=== PATIENT | male | born 1950 | race Caucasian/White ===

== ENCOUNTER 2024-05-29 11:33 | Inpatient (IN) | payer MEDICARE ==
[~2024-05-29] VITALS: Ht 172.7 cm; Wt 86.6 kg
[~2024-05-29 11:33] MED LIST: ATORVASTATIN CA20 MG PO; CALCIUM600 MG PO; FEROSUL325 MG PO; LEVOTHYROXINE75 MCG PO; LISINOPRIL10 MG PO; MULTI-VITAMIN1 EACH PO; SYNJARDY XR 121 EACH PO; VITAMIN D3 COM1 EACH PO
[2024-05-29 11:51] VITALS: TEMP 98
[2024-05-29 12:34] LABS: BASOPHILS # (AUTO) 0.1 (0.0-0.1); BASOPHILS % 0.6 % (0.0-1.0); EOSINOPHILS # (AUTO) 0.2 (0.0-0.4); EOSINOPHILS % 2.5 % (0.0-6.0); HEMATOCRIT 38.8 % (38.2-49.6); HEMOGLOBIN 12.7 g/dL (14.0-18.0); LYMPHOCYTES # (AUTO) 1.3 (1.0-3.2); LYMPHOCYTES % 14.4 % (18.0-39.1); MEAN CORPUSCULAR HEMOGLOBIN 30.2 pg (28-32); MEAN CORPUSCULAR HGB CONC 32.7 g/dL (31-35); MEAN CORPUSCULAR VOLUME 92.2 fL (81-99); MONOCYTES # (AUTO) 0.9 (0.2-0.8); MONOCYTES % 9.9 % (4.4-11.3); NEUTROPHILS # (AUTO) 6.3 (2.1-6.9); NEUTROPHILS % 72.4 % (38.7-80.0); PLATELET COUNT 212 x10e3/uL (140-360); RED BLOOD COUNT 4.21 x10e6/uL (4.3-5.7); RED CELL DISTRIBUTION WIDTH 12.9 % (11.7-14.4); WHITE BLOOD COUNT 8.75 x10e3/uL (4.8-10.8)
[2024-05-29 12:44] LABS: ANION GAP 16.2 mmol/L (8-16); CALCIUM 9.2 mg/dL (8.4-10.2); CREATININE, SERUM 3.2 mg/dL (0.72-1.25); POTASSIUM 4.2 mmol/L (3.5-5.1)
[2024-05-29 13:55] VITALS: PULSE 76; RESP 18
[2024-05-29] MEDS ORDERED: Morphine 4mg INJECTION 4 MG/ML INJ IV PRN (16:15)
[2024-05-29] MEDS ORDERED: ONDANSETRON HCL INJ 2MG/ML 2ML 2 MG/ML VIAL IV PRN (16:15)
[2024-05-29] MEDS ORDERED: SODIUM CHLORIDE FLUSH 10 ML SYR INJ PRN (16:15)
[2024-05-29 18:29] VITALS: BP 117/61; PULSE 82; RESP 18; TEMP 98.2; O2SAT 98
[2024-05-29 18:32] VITALS: BP 117/61; PULSE 82; RESP 18; TEMP 97.6; O2SAT 98
[2024-05-29 20:00] VITALS: BP 117/61; PULSE 82; RESP 18; TEMP 97.6; O2SAT 98
[2024-05-29 20:15] VITALS: BP 141/75; PULSE 81; RESP 17; TEMP 98; O2SAT 100
[2024-05-30] VITALS (10 sets, daily range): BP systolic 88–127; BP diastolic 51–72; PULSE 69–86; RESP 17–20; TEMP 97.6–98.3; O2SAT 97–100
[2024-05-30] MEDS ORDERED: ACETAMINOPHEN 325 MG TAB PO PRN (01:00)
[2024-05-30] MEDS ORDERED: SIMETHICONE 80 MG CHEW PO PRN (01:00)
[2024-05-30] MEDS ORDERED: POTASSIUM CHLORIDE 20 MEQ TAB CR PO PRN (01:00)
[2024-05-30] MEDS ORDERED: LIDOCAINE 4% PATCH TP PRN (01:00)
[2024-05-30] MEDS ORDERED: HYDRALAZINE HCL 20 MG/ML VIAL IV PRN (01:00)
[2024-05-30] MEDS ORDERED: DEXTROSE 50% SYRINGE 50 ML IV PRN ×2 (01:00)
[2024-05-30] MEDS ORDERED: DOCUSATE SODIUM 100 MG CAP PO PRN (01:00)
[2024-05-30] MEDS ORDERED: BENZONATATE 100 MG CAP PO PRN (01:00)
[2024-05-30] MEDS ORDERED: ONDANSETRON HCL INJ 2MG/ML 2ML 2 MG/ML VIAL IV PRN (01:00)
[2024-05-30] MEDS ORDERED: ALBUTEROL/IPRATROPIUM 3 ML NEB NEB PRN (01:00)
[2024-05-30] MEDS ORDERED: DIPHENHYDRAMINE HCL 25 MG CAP PO PRN (01:00)
[2024-05-30] MEDS ORDERED: MECLIZINE HCL 12.5 MG TAB PO PRN (01:00)
[2024-05-30] MEDS ORDERED: MELATONIN 5 MG TABLET PO PRN (01:00)
[2024-05-30] MEDS: SODIUM CHLORIDE 0.9% 1000ML 1,000 ML IV SCH (03:22)
[2024-05-30] MEDS: LEVOTHYROXINE SODIUM 75 MCG TAB PO SCH (05:22)
[2024-05-30 05:34] LABS: BASOPHILS % 0.7 % (0.0-1.0); EOSINOPHILS # (AUTO) 0.3 (0.0-0.4); EOSINOPHILS % 4.4 % (0.0-6.0); HEMATOCRIT 39.3 % (38.2-49.6); HEMOGLOBIN 12.4 g/dL (14.0-18.0); LYMPHOCYTES # (AUTO) 1.6 (1.0-3.2); LYMPHOCYTES % 25.4 % (18.0-39.1); MEAN CORPUSCULAR HEMOGLOBIN 29.8 pg (28-32); MEAN CORPUSCULAR HGB CONC 31.6 g/dL (31-35); MEAN CORPUSCULAR VOLUME 94.5 fL (81-99); MONOCYTES # (AUTO) 0.7 (0.2-0.8); MONOCYTES % 10.7 % (4.4-11.3); NEUTROPHILS # (AUTO) 3.6 (2.1-6.9); NEUTROPHILS % 58.6 % (38.7-80.0); PLATELET COUNT 173 x10e3/uL (140-360); RED BLOOD COUNT 4.16 x10e6/uL (4.3-5.7); RED CELL DISTRIBUTION WIDTH 12.9 % (11.7-14.4); WHITE BLOOD COUNT 6.15 x10e3/uL (4.8-10.8)
[2024-05-30 06:05] LABS: ANION GAP 14.4 mmol/L (8-16); CALCIUM 9.4 mg/dL (8.4-10.2); CREATININE, SERUM 2.75 mg/dL (0.72-1.25); MAGNESIUM 2.7 MG/DL (1.3-2.1); PHOSPHORUS 4.4 MG/DL (2.3-4.7); POTASSIUM 4.4 mmol/L (3.5-5.1)
[2024-05-30 06:29] LABS: THYROID STIMULATING HORMONE 1.107 uIU/mL (0.350-4.940)
[2024-05-30] MEDS: INSULIN LISPRO 100 UNIT/1 ML 3ML VIAL SQ SCH (07:48)
[2024-05-30] MEDS: PANTOPRAZOLE SOD 40 MG TABEC PO SCH (07:53)
[2024-05-30] MEDS: MULTIVITAMINS/MINERALS TAB PO SCH (08:29)
[2024-05-30] MEDS: ASPIRIN 325 MG TAB EC PO SCH (08:29)
[2024-05-30] MEDS ORDERED: LISINOPRIL 10 MG TAB PO SCH (09:00)
[2024-05-30] MEDS ORDERED: LEVOTHYROXINE SODIUM 75 MCG TAB PO SCH (09:00)
[2024-05-30] MEDS: SODIUM CHLORIDE 0.9% 500ML 500 ML IV ONE (13:09)
[2024-05-30] MEDS: ATORVASTATIN 20 MG TAB PO SCH (20:54)
[2024-05-31] VITALS (9 sets, daily range): BP systolic 93–126; BP diastolic 50–78; PULSE 70–82; RESP 16–20; TEMP 97.4–98.4; O2SAT 96–100
[2024-05-31 05:07] LABS: BASOPHILS % 0.4 % (0.0-1.0); EOSINOPHILS # (AUTO) 0.2 (0.0-0.4); EOSINOPHILS % 4.4 % (0.0-6.0); HEMATOCRIT 32.2 % (38.2-49.6); HEMOGLOBIN 10.3 g/dL (14.0-18.0); LYMPHOCYTES # (AUTO) 1.4 (1.0-3.2); LYMPHOCYTES % 26.8 % (18.0-39.1); MEAN CORPUSCULAR HEMOGLOBIN 30.2 pg (28-32); MEAN CORPUSCULAR VOLUME 94.4 fL (81-99); MONOCYTES # (AUTO) 0.6 (0.2-0.8); PLATELET COUNT 145 x10e3/uL (140-360); RED BLOOD COUNT 3.41 x10e6/uL (4.3-5.7); RED CELL DISTRIBUTION WIDTH 12.6 % (11.7-14.4); WHITE BLOOD COUNT 5.26 x10e3/uL (4.8-10.8)
[2024-05-31 05:34] LABS: CALCIUM 8.4 mg/dL (8.4-10.2); CREATININE, SERUM 1.7 mg/dL (0.72-1.25)
[2024-05-31] MEDS: ASPIRIN 81 MG ENTERIC COATED PO SCH (09:01)
[2024-05-31] MEDS ORDERED: ONDANSETRON HCL 4 MG ORAL DISINTEGRATING TAB PO PRN (14:30)
[2024-06-01] VITALS: BP 117/72; PULSE 73; RESP 18; TEMP 98.6; O2SAT 100
[2024-06-01 04:00] VITALS: BP 126/79; PULSE 72; RESP 17; TEMP 97.7; O2SAT 100
[2024-06-01 06:07] LABS: ANION GAP 11.6 mmol/L (8-16); CALCIUM 8.9 mg/dL (8.4-10.2); CREATININE, SERUM 1.62 mg/dL (0.72-1.25); POTASSIUM 4.6 mmol/L (3.5-5.1)
[2024-06-01 06:46] VITALS: PULSE 87; RESP 18; O2SAT 96
[2024-06-01 08:26] VITALS: BP 119/51; PULSE 73; RESP 18; TEMP 97.7; O2SAT 100
[2024-06-01 08:45] VITALS: BP 119/51; PULSE 73; RESP 18; TEMP 97.7; O2SAT 100
[2024-06-01 11:37] VITALS: BP 105/67; PULSE 81; RESP 18; TEMP 98.1; O2SAT 96
[2024-06-01] MEDS ORDERED: ASPIRIN81 MG PO (13:37)
[2024-06-01] MEDS ORDERED: JARDIANCE25 MG PO (13:37)
[2024-06-06] MEDS ORDERED: GLIPIZIDE5 MG PO (12:24)
== END 2024-06-01 14:00 | disposition home or self-care (01) | DRG 923 ==
LOC: ER 12:53 → ERHOLD 16:09 → MED/SURG2 16:55 → OBSVTOIN 05-31 14:40
PROVIDERS: ADMIT Internal Medicine; ATTEND Internal Medicine
DX: T67.01XA Heatstroke and sunstroke, initial encounter (principal); N17.9 Acute kidney failure, unspecified; E86.0 Dehydration; R55 Syncope and collapse; R79.89 Other specified abnormal findings of blood chemistry; E11.9 Type 2 diabetes mellitus without complications; E78.5 Hyperlipidemia, unspecified; E03.9 Hypothyroidism, unspecified; Z79.84 Long term (current) use of oral hypoglycemic drugs; Z79.890 Hormone replacement therapy; Z90.49 Acquired absence of other specified parts of digestive tract; Z98.84 Bariatric surgery status
CPT/HCPCS: 36415; 70450; 70544; 70547; 70551; 72141; 80048; 82948; 83036; 83735; 84100; 84443; 84484; 85025; 93005; 93306; 94799; 95819; 96372; 99252; 99284; G0378; J7030; J7040

== ENCOUNTER → 2024-06-13 | Day surgery (SDC) | payer MEDICARE ==
[~2024-06-13] MED LIST changes: +ASPIRIN81 MG PO; +GLIPIZIDE5 MG PO; +JARDIANCE25 MG PO; +LIDOCAINE HCL 2% LOCAL INJ 5 ML SDV VIAL INJ ONE; +PHENYLEPHRINE HCL 1% 10 MG/ML VIAL ONE; +PROPOFOL IV EMULSION 10 MG/ML 20 ML VIAL ONE
[2024-06-13 13:55] VITALS: TEMP 97
[2024-06-13 14:25] VITALS: BP 120/68; PULSE 77; RESP 16; O2SAT 97
== END | disposition home or self-care (01) ==
LOC: OR 09:55
PROVIDERS: ATTEND Internal Medicine Gastroenterology
DX: K29.50 Unspecified chronic gastritis without bleeding (principal); D12.0 Benign neoplasm of cecum; K22.10 Ulcer of esophagus without bleeding; Z98.84 Bariatric surgery status; K57.30 Diverticulosis of large intestine without perforation or abscess without bleeding; K64.8 Other hemorrhoids; Z71.3 Dietary counseling and surveillance; I10 Essential (primary) hypertension; E11.9 Type 2 diabetes mellitus without complications; E03.9 Hypothyroidism, unspecified; Z79.82 Long term (current) use of aspirin; Z79.84 Long term (current) use of oral hypoglycemic drugs; Z68.26 Body mass index [BMI] 26.0-26.9, adult; Z86.16 Personal history of COVID-19
CPT/HCPCS: 43239; 45380; 45385; J2001; J2371; J2470; J2704; 45378